=== PATIENT | female | born 1995 | race Hispanic/Latino ===

== ENCOUNTER 2019-08-01 05:56 | Day surgery (SDC) | payer BC, MEDICAID ==
[2019-07-31 13:02] LABS: BASOPHILS % (AUTO) 0.5 % (0.0-5.0); EOSINOPHILS % (AUTO) 0.8 % (0.0-8.0); HEMATOCRIT 35.6 % (36-48); LYMPHOCYTES % (AUTO) 23.3 % (21.0-51.0); MEAN CORPUSCULAR HEMOGLOBIN 25.2 pg (27.0-33.0); MEAN CORPUSCULAR HGB CONC 31.2 g/dL (32.0-36.0); MEAN CORPUSCULAR VOLUME 80.7 fL (79-99); MONOCYTES % (AUTO) 7.3 % (3.0-13.0); NEUTROPHILS % (AUTO) 67.8 % (40.0-77.0); PLATELET COUNT (AUTO) 294 K/uL (130-400); RED BLOOD CELL COUNT(AUTO) 4.41 MIL/uL (4.00-5.50); RED CELL DISTRIBUTION WIDTH 15.8 % (11.0-15.5); WHITE BLOOD COUNT (AUTO) 9.6 K/uL (4.8-10.8)
[2019-07-31 13:18] VITALS: BP 105/57
[~2019-08-01] VITALS: Ht 163.8 cm; Wt 55.9 kg
[2019-08-01 06:18] VITALS: BP 106/66
[2019-08-01] MEDS ORDERED: LACTATED RINGERS 1000ML 1,000 ML IV ONE (06:26)
[2019-08-01] MEDS ORDERED: DEXAMETHASONE SOD PHOSPHATE 10MG/ML 1ML VIAL ONE (08:10)
[2019-08-01] MEDS ORDERED: LIDOCAINE PF 2% 5ML ABBOJECT ONE (08:10)
[2019-08-01] MEDS ORDERED: ONDANSETRON HCL 4 MG/2 ML VIAL ONE (08:11)
[2019-08-01] MEDS ORDERED: MIDAZOLAM HCL 1 MG/ML 2ML VIAL ONE (08:11)
[2019-08-01] MEDS ORDERED: FENTANYL CITRATE PF 50 MCG/1 ML 2ML VIAL ONE (08:11)
[2019-08-01] MEDS ORDERED: PROPOFOL 10 MG/ML 20ML VIAL IV ONE (08:11)
[2019-08-01] MEDS ORDERED: OXYTOCIN-LR 20 UNITS/1000 ML 1,000 ML IV ONE (08:39)
[2019-08-01 10:05] VITALS: BP 116/76
--- NOTE | 2019-08-01 10:05 | NUR ---
ASSESSMENT RECEIVED PT FROM LD NURSE. PETEY PAD IN PLACE. SCANT BLEEDING NOTED TO PAD. MARY JO
[2019-08-01 10:20] VITALS: BP 108/81
[2019-08-01 10:45] VITALS: BP 109/85
--- NOTE | 2019-08-01 10:45 | NUR ---
DISCHARGE ORAL AND WRITTEN DISCHARGE INSTRUCTIONS GIVEN TO PT AND PTS BOYFRIEND ALONG WITH PRESCRIPTION. NO OTHER QUESTIONS AT THIS TIME.
== END 2019-08-01 11:00 | disposition home or self-care (01) ==
LOC: DAH 05:56
DX: O03.4 Incomplete spontaneous abortion without complication (principal)
CPT/HCPCS: 36415; 59812; 85025; 88305; A4215; A4221; A4222; A4223; A4663; A6260; J1100; J2001; J2250; J2405; J2590; J2704; J3010; J7120 ×2